=== PATIENT | female | born 1965 | race Caucasian/White ===

== ENCOUNTER → 2017-07-31 | Outpatient (CLI) | payer OTHER | LOC: M.RAD 09:15 | DX: Z12.31 Encounter for screening mammogram for malignant neoplasm of breast (principal) ==

== ENCOUNTER → 2017-08-13 | Outpatient (CLI) | payer OTHER | LOC: M.RAD 07-31 16:15 | DX: R92.1 Mammographic calcification found on diagnostic imaging of breast (principal) ==

== ENCOUNTER → 2017-08-28 | Outpatient (CLI) | payer OTHER ==
--- NOTE | 2017-09-09 14:10 | PATH ---
[facility] [address] [place] [address] PATHOLOGY RPT PROCEDURE Name: MARTINE NGUYEN Room: [facility]#: [id number] Admission: 08/28/17 Date of : 63 Discharge: Report #: [id number] Path Case #: [id number] [facility] Accession Number: [id number] . 01 Material submitted: . RIGHT BREAST STEREOTACTIC BIOPSY FOR CALCIFICATIONS . 02 Diagnosis: Breast "right breast biopsy for calcifications": - Fibroadenomatous nodule measuring 0.3 cm in greatest dimension with coarse microcalcifications. - There is no evidence of atypia or malignancy. (SHA:haylee; 09/01/2017) QMS/09/01/2017 . 02 Electronically signed: . Ravinder Miller MD, Pathologist NPI- [id number] . 01 Gross description: . The specimen is received in formalin, labeled "Martine Nguyen and right breast for calcifications", is a blue cassette containing several fibrofatty soft tissue cores ranging from 0.5 cm up to 1.8 cm in greatest dimension and measuring 1.8 x 0.8 x 0.3 cm in aggregate. This is transferred into cassette A1. Also within the container are similar soft tissues measuring 2.0 x 1.5 x 0.5 cm in aggregate. This is entirely submitted in A2-A3. The specimen was excised at 1100 on 08/28/17, placed in formalin at 1100 on 08/28/17, formalin exposure: 12 hours 40 minutes . (SWS; 08/28/2017) SHS/SHS . 02 Pathologist provided ICD-10: N63.10 . 02 CPT . 385218 Performed at: 01 [facility] [address], [place] [id number] MD Ghulam Sanches MD Phone: [phone] Performed at: [address] [address] [place], [place] [id number] MD Emanuel Moore MD Phone: [phone]
== END ==
LOC: M.RAD 08-24 11:00
DX: R92.1 Mammographic calcification found on diagnostic imaging of breast (principal)